=== PATIENT | male | born 1995 | race American Indian/Alaskan Native ===

== ENCOUNTER 2017-11-06 22:14 | Emergency (ER) | payer SELFPAY ==
[2017-11-06] MEDS ORDERED: MOTRIN PO ONE (22:41)
[2017-11-06] MEDS ORDERED: NORCO 5/325 PO ONE (22:41)
[2017-11-06 22:46] VITALS: BP 124/80
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
== END 2017-11-07 00:09 | disposition home or self-care (01) ==
LOC: ED 22:14
DX: M54.2 Cervicalgia (principal); F17.200 Nicotine dependence, unspecified, uncomplicated
CPT/HCPCS: 72040; 99283